=== PATIENT | female | born 2000 | race Caucasian/White ===

== ENCOUNTER 2021-05-01 03:28 | Outpatient (CLI) | payer MEDICARE, MEDICAID, SELFPAY ==
[2021-05-01 15:23] LABS: ALT 28 U/L (14-59); AST 17 U/L (15-37); Albumin 3.6 g/dL (3.4-5.0); Alkaline Phosphatase 94 U/L (46-116); Anion Gap 8.7 mmol/L (3-11); BUN 9 mg/dL (7-18); Bilirubin, Total 0.4 mg/dL (0.2-1.0); CO2 26.3 mmol/L (21.0-32.0); CREATININE 0.8 mg/dL (0.55-1.02); Calcium 8.5 mg/dL (8.5-10.1); Chloride 106 mmol/L (98-107); Glucose 78 mg/dL (74-106); Sodium 141 mmol/L (136-145); TSH (W/Ref FT4) 0.67 uIU/mL (0.36-3.74); Total Protein 6.6 g/dL (6.4-8.2)
[2021-05-02 10:43] LABS: Hepatitis C Ab w Rflx HCV PCR Negative (Negative)
[2021-05-02 10:52] LABS: Syphilis Serology (RPR) Negative (Negative)
[2021-05-02 11:02] LABS: HIV-1/2 Ag & Ab Screen Negative (Negative)
[2021-05-02 11:52] LABS: Hepatitis B Surface Ab Negative (See Note)
== END 2021-05-01 03:29 | disposition home or self-care (01) ==
LOC: LBO 03:28
PROVIDERS: PCP Nurse Practitioner Adult Health; Visit Provider Nurse Practitioner Adult Health
DX: F17.210 Nicotine dependence, cigarettes, uncomplicated (principal); E66.9 Obesity, unspecified; Z11.59 Encounter for screening for other viral diseases; Z11.4 Encounter for screening for human immunodeficiency virus [HIV]; Z11.3 Encounter for screening for infections with a predominantly sexual mode of transmission
CPT/HCPCS: 36415; 80053; 86706; 86803; 87389; 84443; 86592

== ENCOUNTER 2022-02-10 16:43 | Outpatient (REF) | payer MEDICARE, MEDICAID, SELFPAY ==
[2022-02-12 11:26] LABS: COVID-19 RT-PCR UVMMC Result Positive (Negative)
== END 2022-02-10 16:44 | disposition home or self-care (01) ==
LOC: LBN 16:43
PROVIDERS: Student in an Organized Health Care Education/Training Program; PCP Nurse Practitioner Adult Health; Referring Provider Internal Medicine; Visit Provider Internal Medicine
DX: Z20.822 Contact with and (suspected) exposure to COVID-19 (principal); R05.8 Other specified cough; R06.02 Shortness of breath; R06.2 Wheezing
CPT/HCPCS: U0003; U0005

== ENCOUNTER 2022-04-20 04:37 | Outpatient (CLI) | payer MEDICARE, MEDICAID, SELFPAY ==
[2022-04-20] MEDS: Albuterol HFA 18 GM 200 PUFF INH IH (14:55)
[2022-04-20] MEDS: Inhaler, Assist Device 1 EACH MC (14:55)
--- NOTE | 2022-05-05 11:01 | W.PFT ---
Date of service: 04/20/22 Time of Service: 10:06 Pulmonary Function Test Result Requesting Provider Elli Nguyen Indications: Asthma Interpretation Spirometry: No airflow limitation. No significant bronchodilator response. Impression Normal spirometry Clinical Correlation therefore is recommended.
== END 2022-04-20 04:38 | disposition home or self-care (01) ==
LOC: RT 04:38
PROVIDERS: PCP Nurse Practitioner Adult Health; Visit Provider Nurse Practitioner Adult Health
DX: J45.909 Unspecified asthma, uncomplicated (principal)
CPT/HCPCS: 94060

== ENCOUNTER → 2022-09-30 01:30 | Outpatient (CLI) | payer MEDICARE, MEDICAID, SELFPAY ==
--- NOTE | 2022-09-30 08:00 | DI.RAD_ITS ---
Exam(s) XR CHEST 2V PA LATERAL EXAM: XR CHEST 2V PA LATERAL CLINICAL HISTORY: asthma not responsive to therapy,DYSPNEA,R06.00,R06.98 TECHNIQUE: 2D digital imaging was performed. COMPARISON: No exams were available for comparison FINDINGS: HEART: Normal size. Aorta: PULMONARY VASCULATURE: Normal. LUNGS: Clear. PLEURAL SPACE: No pleural effusion or pneumothorax. BONE:Unremarkable for age. IMPRESSION: No acute abnormality. DATA REPOSITORY: RADIATION DOSE DELIVERED:
== END ==
PROVIDERS: PCP Nurse Practitioner Adult Health; Visit Provider Student in an Organized Health Care Education/Training Program
DX: J45.909 Unspecified asthma, uncomplicated (principal); R06.00 Dyspnea, unspecified; R06.89 Other abnormalities of breathing
CPT/HCPCS: 71046

== ENCOUNTER 2022-09-30 04:08 | Outpatient (CLI) | payer MEDICARE, MEDICAID, SELFPAY ==
[2022-09-30 16:18] LABS: Abs Immature Grans 0.03 10^3/uL (0.0-0.06); Absolute Basophil Count 0.03 10^3/uL (0.0-0.2); Absolute Eosinophil Count 0.17 10^3/uL (0.0-0.7); Absolute Lymphocyte Count 4.58 10^3/uL (1.2-3.4); Absolute Monocyte Count 0.61 10^3/uL (0.1-0.8); Absolute Neutrophil Count 4.97 10^3/uL (1.2-6.7); Basophils % 0.3; Eosinophils % 1.6; HCT 42.2 % (36.0-46.0); HGB 13.6 g/dL (11.2-15.7); Immature Grans % 0.3; Lymphocytes % 44.1; MCH 27.8 pg (27.0-33.0); MCHC 32.2 % (32.0-36.0); MCV 86 fL (80-95); MPV 9.3 fL (8.0-11.0); Monocytes % 5.9; Neutrophils % 47.8; Platelet Count 281 10^3/uL (130-400); RDW 13.9 % (11.7-14.6); RDW-SD 43.5 fL; WBC 10.39 10^3/uL (4.4-10.8)
[2022-10-02 07:50] LABS: IgE 5 IU/mL (<158)
== END 2022-09-30 04:09 | disposition home or self-care (01) ==
LOC: LBO 04:11
PROVIDERS: PCP Nurse Practitioner Adult Health; Visit Provider Student in an Organized Health Care Education/Training Program
DX: J45.909 Unspecified asthma, uncomplicated (principal)
CPT/HCPCS: 36415; 71046; 82785; 85025

== ENCOUNTER 2023-01-20 16:01 | Outpatient (REF) | payer MEDICARE, MEDICAID, SELFPAY ==
[2023-01-20 20:09] LABS: C Diff PCR Negative (Negative)
[2023-01-21 22:40] LABS: Campylobacter PCR Negative (Negative); Salmonella PCR Negative (Negative); Shiga Toxin PCR Negative (Negative); Shigella/Enteroinvasive Ecoli Negative (Negative)
== END 2023-01-20 16:02 | disposition home or self-care (01) ==
LOC: LBN 16:01
PROVIDERS: PCP Nurse Practitioner Adult Health; Visit Provider Physician Assistant
DX: K92.1 Melena (principal); R19.7 Diarrhea, unspecified
CPT/HCPCS: 87329; 87493; 87505

== ENCOUNTER 2023-04-12 21:09 | Emergency (ER) | payer MEDICARE, MEDICAID, SELFPAY ==
[2023-04-12 21:14] VITALS: BP 134/95; PULSE 67; RESP 20; TEMP 37.1; O2SAT 98
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
[2023-04-12] MEDS: Amoxicillin 875/Clav. 125 TAB PO (21:35)
--- NOTE | 2023-04-12 21:58 | NUR.NOTE ---
Animal bite form faxed to [facility] Officer Sanjay Lal at [phone].Nursing Note:
== END 2023-04-12 21:39 | disposition home or self-care (01) ==
PROVIDERS: Emergency Provider Emergency Medicine; PCP Nurse Practitioner Adult Health
DX: S71.152A Open bite, left thigh, initial encounter (principal); W55.01XA Bitten by cat, initial encounter
CPT/HCPCS: 81025; 99283; 99284

== ENCOUNTER 2023-05-05 20:57 | Emergency (ER) | payer MEDICARE, MEDICAID, SELFPAY ==
[2023-05-05 21:01] VITALS: BP 145/57; PULSE 75; RESP 24; TEMP 36.7; O2SAT 99
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
== END 2023-05-05 21:22 | disposition home or self-care (01) ==
LOC: ER 21:26
PROVIDERS: Emergency Provider Registered Nurse Emergency; PCP Nurse Practitioner Family
DX: Z32.01 Encounter for pregnancy test, result positive (principal)
CPT/HCPCS: 81025; 99282

== ENCOUNTER 2023-05-18 11:03 | Emergency (ER) | payer MEDICARE, MEDICAID, SELFPAY ==
[2023-05-18 11:09] VITALS: BP 106/60; PULSE 76; RESP 16; TEMP 36.9; O2SAT 99
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
[2023-05-18] MEDS: Acetaminophen 500 MG TAB 1000 MG PO (12:45)
== END 2023-05-18 12:59 | disposition home or self-care (01) ==
PROVIDERS: Emergency Provider Emergency Medicine; PCP Nurse Practitioner Family
DX: S00.83XA Contusion of other part of head, initial encounter (principal); Y07.031 Male partner, former, perpetrator of maltreatment and neglect
CPT/HCPCS: 76604; 76705; 76775; 93308; 99284; 99283

== ENCOUNTER 2023-05-21 03:57 | Emergency (ER) | payer MEDICARE, MEDICAID, SELFPAY ==
[2023-05-21 04:01] VITALS: BP 127/82; PULSE 92; RESP 20; TEMP 36.8; O2SAT 98
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
[2023-05-21] MEDS: Acetaminophen 500 MG TAB 1000 MG PO (04:23)
[2023-05-21 04:51] LABS: Abs Immature Grans 0.05 10^3/uL (0.0-0.06); Absolute Basophil Count 0.04 10^3/uL (0.0-0.2); Absolute Eosinophil Count 0.12 10^3/uL (0.0-0.7); Basophils % 0.3; Eosinophils % 0.9; HCT 41.5 % (36.0-46.0); HGB 13.4 g/dL (11.2-15.7); Immature Grans % 0.4; Lymphocytes % 34.9; MCHC 32.3 % (32.0-36.0); MCV 87 fL (80-95); MPV 9.3 fL (8.0-11.0); Monocytes % 5.7; Neutrophils % 57.8; Platelet Count 266 10^3/uL (130-400); RBC 4.78 10^6/uL (3.93-5.22); RDW 13.6 % (11.7-14.6); RDW-SD 43.4 fL; WBC 12.91 10^3/uL (4.4-10.8)
[2023-05-21 04:53] LABS: Absolute Lymphocyte Count 4.51 10^3/uL (1.2-3.4); Absolute Monocyte Count 0.74 10^3/uL (0.1-0.8); Absolute Neutrophil Count 7.46 10^3/uL (1.2-6.7)
[2023-05-21 05:07] LABS: Lipase 38 U/L (16-77)
[2023-05-21 05:38] LABS: ALT 21 U/L (14-59); AST 14 U/L (15-37); Albumin 3.4 g/dL (3.4-5.0); Alkaline Phosphatase 78 U/L (46-116); Anion Gap 9.6 mmol/L (3-11); BUN 9 mg/dL (7-18); Bilirubin, Total 0.3 mg/dL (0.2-1.0); CO2 25.4 mmol/L (21.0-32.0); CREATININE 0.8 mg/dL (0.55-1.02); Calcium 8.9 mg/dL (8.5-10.1); Chloride 106 mmol/L (98-107); Estimated GFR 106.77 (mL/min/1.73m2); Glucose 92 mg/dL (74-106); Potassium 3.9 mmol/L (3.5-5.1); Sodium 141 mmol/L (136-145); Total Protein 6.5 g/dL (6.4-8.2)
[2023-05-21 06:22] LABS: Bilirubin Negative (Negative); Blood Negative (Negative); Clarity Clear (Clear); Glucose Negative (Negative); Ketones Negative (Negative); Leukocyte Esterase Negative (Negative); Nitrite Negative (Negative); Urobilinogen 0.2 mg/dL (Up to 0.2); pH 5.5 (5-8)
[2023-05-21 06:42] VITALS: BP 128/59; PULSE 61; RESP 20; O2SAT 100
[2023-05-24 13:26] LABS: Dose of RhIg 1; Kleihauer Test Negative (Negative)
== END 2023-05-21 16:48 | disposition home or self-care (01) ==
PROVIDERS: Emergency Provider Student in an Organized Health Care Education/Training Program; PCP Nurse Practitioner Family
DX: O26.891 Other specified pregnancy related conditions, first trimester; R10.13 Epigastric pain; O99.331 Smoking (tobacco) complicating pregnancy, first trimester; F17.210 Nicotine dependence, cigarettes, uncomplicated; F17.290 Nicotine dependence, other tobacco product, uncomplicated; Z3A.01 Less than 8 weeks gestation of pregnancy; Y09 Assault by unspecified means
CPT/HCPCS: 36415; 80053; 83690; 99284; 81003; 84702; 85025; 85460

== ENCOUNTER 2023-05-27 17:48 | Emergency (ER) | payer MEDICARE, MEDICAID, SELFPAY ==
[2023-05-27 17:52] VITALS: BP 129/56; PULSE 74; RESP 18; TEMP 36.5; O2SAT 100
[2023-05-27 18:44] VITALS: BP 98/46; PULSE 60; RESP 16; TEMP 36.5; O2SAT 98
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
[2023-05-27 19:51] VITALS: BP 102/49; PULSE 63; RESP 16; TEMP 36.6; O2SAT 99
--- NOTE | 2023-05-27 19:52 | NUR.NOTE ---
@1930- Deion Gay MD [facility] discontinued.
== END 2023-05-27 19:54 | disposition home or self-care (01) ==
PROVIDERS: Emergency Provider Emergency Medicine; PCP Nurse Practitioner Family
DX: O26.891 Other specified pregnancy related conditions, first trimester (principal); R10.9 Unspecified abdominal pain
CPT/HCPCS: 99281; 99282

== ENCOUNTER 2023-06-21 17:06 | Emergency (ER) | payer MEDICARE, SELFPAY ==
[2023-06-21 17:12] VITALS: BP 109/41; PULSE 72; RESP 20; TEMP 37; O2SAT 99
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
[2023-06-21 18:22] LABS: Bilirubin Negative (Negative); Blood Negative (Negative); Clarity Clear (Clear); Glucose Negative (Negative); Ketones 15 mg/dL (Negative); Leukocyte Esterase Negative (Negative); Nitrite Negative (Negative); Specific Gravity >= 1.030 (1.005-1.025); Urobilinogen 0.2 mg/dL (Up to 0.2); pH 5.5 (5-8)
[2023-06-21 18:52] LABS: HCT 41.6 % (36.0-46.0); HGB 13.5 g/dL (11.2-15.7); MCHC 32.5 % (32.0-36.0); MCV 86 fL (80-95); MPV 9.6 fL (8.0-11.0); Platelet Count 264 10^3/uL (130-400); RBC 4.82 10^6/uL (3.93-5.22); RDW 13.4 % (11.7-14.6); WBC 11.35 10^3/uL (4.4-10.8)
[2023-06-21 19:28] LABS: Anion Gap 10.7 mmol/L (3-11); BUN 5 mg/dL (7-18); CO2 25.3 mmol/L (21.0-32.0); CREATININE 0.6 mg/dL (0.55-1.02); Calcium 8.9 mg/dL (8.5-10.1); Chloride 102 mmol/L (98-107); Estimated GFR 129.27 (mL/min/1.73m2); Glucose 90 mg/dL (74-106); Potassium 3.6 mmol/L (3.5-5.1); Sodium 138 mmol/L (136-145)
[2023-06-21 19:29] LABS: HCG Quant, Pregnancy 115780 mIU/mL (1-3)
[2023-06-21 19:39] VITALS: BP 116/66; PULSE 72; RESP 16; O2SAT 100
== END 2023-06-21 19:55 | disposition home or self-care (01) ==
PROVIDERS: Emergency Provider Physician Assistant; PCP Nurse Practitioner Family
DX: O21.9 Vomiting of pregnancy, unspecified (principal)
CPT/HCPCS: 80048; 85027; 86850; 86900; 86901; 99283; 81003; 84702

== ENCOUNTER 2023-06-22 03:28 | Outpatient (CLI) | payer MEDICARE, SELFPAY ==
[2023-06-22 15:58] LABS: Panorama Kit Sent via Fed Ex
[2023-06-22 16:00] LABS: Abs Immature Grans 0.03 10^3/uL (0.0-0.06); Absolute Basophil Count 0.02 10^3/uL (0.0-0.2); Absolute Eosinophil Count 0.04 10^3/uL (0.0-0.7); Absolute Lymphocyte Count 3.32 10^3/uL (1.2-3.4); Absolute Monocyte Count 0.52 10^3/uL (0.1-0.8); Absolute Neutrophil Count 6.88 10^3/uL (1.2-6.7); Basophils % 0.2; Eosinophils % 0.4; HCT 39.7 % (36.0-46.0); HGB 13.1 g/dL (11.2-15.7); Immature Grans % 0.3; Lymphocytes % 30.7; MCH 28.4 pg (27.0-33.0); MCV 86 fL (80-95); MPV 9.7 fL (8.0-11.0); Monocytes % 4.8; Neutrophils % 63.6; Platelet Count 234 10^3/uL (130-400); RBC 4.61 10^6/uL (3.93-5.22); RDW 13.4 % (11.7-14.6); WBC 10.81 10^3/uL (4.4-10.8)
[2023-06-22 16:10] LABS: Glucose,1 Hr (Glucola) 118 mg/dL (80-140)
[2023-06-24 10:01] LABS: Hepatitis B Surface Ag Negative (Negative)
[2023-06-24 10:21] LABS: Varicella IgG Antibody Negative (See Note)
[2023-06-24 10:25] LABS: Rubella IgG Ab (UVM) Negative (See Note)
[2023-06-24 10:43] LABS: Hepatitis C Ab w Rflx HCV PCR Negative (Negative)
[2023-06-24 10:55] LABS: HIV-1/2 Ag & Ab Screen Negative (Negative)
[2023-06-25 18:49] LABS: Syphilis IgG w/Reflex Nonreactive (Nonreactive)
[2023-07-03 13:58] LABS: Result Summary NEGATIVE; Specimen WB Whole Blood
== END 2023-06-22 03:29 | disposition home or self-care (01) ==
LOC: LBO 03:28
PROVIDERS: PCP Nurse Practitioner Family; Visit Provider Advanced Practice Midwife
DX: Z34.91 Encounter for supervision of normal pregnancy, unspecified, first trimester (principal); Z3A.11 11 weeks gestation of pregnancy; Z36.89 Encounter for other specified antenatal screening
CPT/HCPCS: 36415; 81220; 81222; 82950; 86787; 86803; 86850; 86900; 86901; 87340; 87389; 85025; 86762; 86780

== ENCOUNTER 2023-06-22 16:00 | Outpatient (REF) | payer MEDICARE, SELFPAY ==
--- NOTE | 2023-06-22 14:30 | PAPFT_PTH ---
PATIENT: Tj Dixon LOC: [facility] U#:[id number] AGE/SX: 23/F ROOM: RE06/22/[address]: Marilee Hernadez : 2000 BED: DIS: 06/22/2023 SPEC #: [id number] RECD: 06/22/23 18:08 STATUS: DIANNE CRISOSTOMO #: [id number] MART: 06/22/23 14:[address]: Marilee Hernadez DEPT: [facility] Cytology RECD BY: Christiana De Leon ENTERED: 06/22/23 18:08 SP TYPE: PAPFT CARL DR: Gisselle Saunders, RUKHSANA Tissues: 1 - CX/ENDOCX FOR PAP SMEARS Procedures: PAP THIN PREP/[facility] Screening Comments: [id number]
[2023-06-22 18:07] LABS: *AMPHETAMINES SCREEN URINE Negative (Negative); *BARBITURATES SCREEN URINE Negative (Negative); *BENZODIAZEPINES SCREEN URINE Negative (Negative); Cannabinoids THC Positive (Negative); Cocaine Screen,Urine Negative (Negative); METHADONE URINE SCREEN Negative (Negative); OPIATES URINE SCREEN Negative (Negative)
[2023-06-22 18:11] LABS: Tricyclic Antidepressants Negative (Negative)
[2023-06-24 13:28] LABS: Chlamydia Result Negative (Negative); GC Result Negative (Negative)
[2023-06-28 11:05] LABS: Buprenorphine Negative ng/mL (Cutoff: 5.0); Norbuprenorphine Negative ng/mL (Cutoff: 2.5)
== END 2023-06-22 16:01 | disposition home or self-care (01) ==
LOC: LBN 16:00
PROVIDERS: PCP Nurse Practitioner Family; Visit Provider Advanced Practice Midwife
DX: O99.891 Other specified diseases and conditions complicating pregnancy (principal); R87.612 Low grade squamous intraepithelial lesion on cytologic smear of cervix (LGSIL); Z3A.00 Weeks of gestation of pregnancy not specified
CPT/HCPCS: 80307; 80348; 87491; 87591; 88142; 87086; 87480; 87510; 87660